=== PATIENT | female | born 1960 | race Caucasian/White ===

== ENCOUNTER 2020-12-29 08:44 | Emergency (ER) | payer OTHER ==
[~2020-12-29] VITALS: Ht 165.1 cm; Wt 75.0 kg
[2020-12-29 08:58] VITALS: Ht 165.1 cm; Wt 75.0 kg
[2020-12-29] MEDS ORDERED: AMBIEN10 MG PO (09:03)
[2020-12-29 09:24] LABS: BASOPHILS 1.2 % (0-2); EOSINOPHILS 2.6 % (0-7); HEMATOCRIT 45.4 % (36.0-48.0); HEMOGLOBIN 14.9 g/dL (12-16); LYMPHOCYTES 36.1 % (15-50); MCH 29.3 pg (26.0-34.0); MCHC 32.8 g/dL (31.0-37.0); MCV 89.1 fL (80.0-100.0); MEAN PLATELET VOLUME 7.4 fL (7.4-10.4); MONOCYTES 7.7 % (2-11); NEUTROPHILS 52.4 % (40-80); PLATELET COUNT 326 10x3/uL (130-400); RBC 5.09 10x6/uL (4.00-5.40); RDW 13.4 % (11.5-14.5); WBC 7.5 10x3/uL (4.8-10.8)
[2020-12-29 09:27] LABS: BACTERIA FEW HPF (<MOD); BILIRUBIN NEGATIVE (NEGATIVE); KETONE NEGATIVE mg/dL (< 1+); NITRITE NEGATIVE (NEGATIVE); PH 5.5 (5.0-8.0); SQUAMOUS EPITHELIAL <1 HPF (0-4); UROBILINOGEN NORMAL mg/dL (< 2); WHITE CELLS - URINE <1 HPF (0-4)
[2020-12-29 09:31] LABS: CALC OSMOLALITY 282 mosm/kg (275-300); CALCIUM 9.1 mg/dL (8.5-10.1); CARBON DIOXIDE 18.8 mmol/L (21.0-32.0); CHLORIDE - SERUM 106 mmol/L (98-107); CREATININE - SERUM 0.9 mg/dL (0.6-1.3); GLUCOSE 109 mg/dL (74-106); POTASSIUM - SERUM 4.2 mmol/L (3.5-5.1); SODIUM 141 mmol/L (136-145); UREA NITROGEN 16 mg/dL (7-18); eGFR NON AFRICAN AMERICAN 67 mL/min (90-120)
[2020-12-29 09:40] LABS: ALBUMIN 4.8 g/dL (3.4-5.0); ALKALINE PHOSPHATASE 101 U/L (30-120); ALT (SGPT) 22 U/L (10-68); AMYLASE - SERUM 43 U/L (25-115); BILIRUBIN - TOTAL 0.29 mg/dL (0.2-1.3); LIPASE 86 U/L (73-393); PROTEIN - SERUM 7.6 g/dL (6.4-8.2); TROPONIN-I < 0.017 ng/mL (0.000-0.060)
[2020-12-29 18:45] VITALS: BP 134/85
== END 2020-12-29 15:00 | disposition other institution (70) ==
LOC: D.ER 08:44
PROVIDERS: Family Medicine
DX: R31.9 Hematuria, unspecified (principal); N13.4 Hydroureter; N13.8 Other obstructive and reflux uropathy; N23 Unspecified renal colic; N20.1 Calculus of ureter